=== PATIENT | male | born 1980 | race Caucasian/White ===

== ENCOUNTER 2024-11-10 18:30 | Emergency (ER) | payer OTHER, BC ==
[~2024-11-10] VITALS: Ht 182.9 cm; Wt 90.0 kg
[~2024-11-10 18:30] MED LIST: ZESTORETIC 10-1 EACH PO
[2024-11-10] MEDS ORDERED: ASPIRIN 81 MG CHEW PO ONE (18:45)
[2024-11-10 18:48] LABS: BASOPHILS 0.5 % (0.2-1.2); EOSINOPHILS 1.4 % (0.8-7.0); LYMPHOCYTES 13.5 % (21.8-53.1); MCH 31.9 PG (25.7-32.2); MCHC 35.0 g/dL (32.3-36.5); MCV 90.9 fL (79.0-92.2); MONOCYTES 6.1 % (5.3-12.2); NEUTROPHILS 78.1 % (34.0-67.9); RBC 5.62 M/uL (4.63-6.08)
[2024-11-10 19:07] LABS: ALT (SGPT) 42.0 U/L (14-59); AST (SGOT) 24.0 U/L (15-37); GLOMERULAR FILTRATION RATE,EST 84.0 mL/min (>60); PROTEIN, TOTAL 8.3 g/dL (6.4-8.2); UREA NITROGEN 14.0 mg/dL (7-18)
[2024-11-10] MEDS ORDERED: METOPROLOL TARTRATE 5 MG/5 ML VIAL IV ONE (19:15)
[2024-11-10] MEDS ORDERED: NITROGLYCERIN PACKET TOP ONE (20:00)
[2024-11-10] MEDS ORDERED: HEPARIN SOD,PORK IN 0.45% NACL 500 ML IV SCH (21:15)
[2024-11-10] MEDS ORDERED: LORazepam 2 MG/ML VIAL IV ONE (21:30)
[2024-11-10] MEDS ORDERED: ESMOLOL HCL 250 ML IV SCH (22:00)
[2024-11-10] MEDS ORDERED: AMIODARONE HCL 150 MG/3 ML VIAL IV ONE (23:15)
[2024-11-10] MEDS ORDERED: CLOPIDOGREL BISULFATE 75 MG TAB PO ONE (23:45)
--- NOTE | 2024-11-11 00:33 | EKG ---
[facility] [address] [facility] [place] [address] Signed Normal sinus rhythm Left axis deviation Inferior infarct , age undetermined Abnormal ECG No previous ECGs available Confirmed by Brittney Hernández MD () on 11/11/2024 12:33:04 AM Electronically Signed By: BRITTNEY HERNÁNDEZ MD 11/11/24 0033 PATIENT NAME: DAGO SMYTH Electrocardiogram DATE OF : 80 PHYSICIAN: BRITTNEY HERNÁNDEZ MD REPORT #: [id number] REPORT IS CONFIDENTIAL AND NOT TO BE RELEASED WITHOUT AUTHORIZATION
[2024-11-11 01:00] VITALS: BP 171/126
--- NOTE | 2024-11-12 22:18 | EKG ---
[facility] [address] [facility] [place] [address] Signed Normal sinus rhythm Left axis deviation Inferior infarct (cited on or before 10-NOV-2024) Abnormal ECG When compared with ECG of 10-NOV-2024 18:38, No significant change was found Confirmed by Brittney Hernández MD () on 11/12/2024 10:18:23 PM Electronically Signed By: BRITTNEY HERNÁNDEZ MD 11/12/24 2218 PATIENT NAME: DAGO SMYTH GIOVANNA Electrocardiogram DATE OF : 80 PHYSICIAN: BRITTNEY HERNÁNDEZ MD REPORT #: [id number] REPORT IS CONFIDENTIAL AND NOT TO BE RELEASED WITHOUT AUTHORIZATION
== END 2024-11-11 01:06 | disposition short-term general hospital (02) ==
LOC: ED 18:30
PROVIDERS: Emergency Medicine
DX: I21.4 Non-ST elevation (NSTEMI) myocardial infarction (principal); I16.0 Hypertensive urgency; I10 Essential (primary) hypertension
CPT/HCPCS: 36415; 71045; 71275; 80053; 83735; 84484; 85025; 85730; 93005; 93010; 96365; 96375; 99285-25; A9270; J0282; J1644; J2060; J7060; Q9967